=== PATIENT | male | born 1985 | race Caucasian/White ===

== ENCOUNTER 2017-08-11 16:06 | Emergency (ER) | payer SELFPAY ==
[~2017-08-11] VITALS: Ht 182.9 cm; Wt 121.2 kg
[~2017-08-11 16:06] MED LIST: CLARITIN10 MG PO; KEFLEX500 MG PO; LIPITOR10 MG; NAPROXEN500 MG PO
[2017-08-11] MEDS ORDERED: AMOXICILLIN875 MG PO (17:16)
[2017-08-11 17:47] VITALS: BP 136/84
== END 2017-08-11 17:48 | disposition home or self-care (01) ==
LOC: EME 16:06
DX: J02.9 Acute pharyngitis, unspecified (principal); H66.92 Otitis media, unspecified, left ear; Z87.891 Personal history of nicotine dependence
CPT/HCPCS: 99281; 99283; J1885